=== PATIENT | male | born 1985 | race Caucasian/White ===

== ENCOUNTER 2018-05-15 21:36 | Observation (INO) ==
[2018-05-15 22:04] LABS: Microscopic, Urine URINE MICROSCOPIC (MICROSCOPIC)
[2018-05-15 22:06] LABS: Basophils # 0.1 K/mm3 (0-0.2); Basophils % 0.7 % (0.1-2.0); Eosinophils # 0.3 K/mm3 (0.0-0.4); Eosinophils % 2.6 % (0.1-12.0); Hematocrit 43.1 % (42.0-52.0); Hemoglobin 14.6 g/dL (14.1-18.0); Lymphocytes # 2.4 K/mm3 (0.7-4.5); Lymphocytes % 19.2 % (10-50); Mean Corpuscular HGB Conc 33.9 g/dL (31.8-35.4); Mean Corpuscular Hemoglobin 27.9 pg (27.0-31.2); Mean Corpuscular Volume 82.3 fl (80-94); Mean Platelet Volume 7.6 fl (7.4-10.4); Monocytes # 0.8 K/mm3 (0.1-1.0); Monocytes % 6.3 % (1.7-9.3); Neutrophils # 8.8 K/mm3 (1.8-7.8); Neutrophils % 71.3 % (37.0-80.0); Platelet Count 263 K/mm3 (142-424); Red Blood Count 5.23 M/mm3 (4.60-6.20); Red Cell Distribution Width 12.4 % (11.5-17.5); White Blood Count 12.4 K/mm3 (4.8-10.8)
[2018-05-15 22:07] LABS: Appearance,Urine CLEAR (Clear); Bilirubin,Urine Negative (Negative); Blood, Urine Negative (Negative); Color,Urine YELLOW (Yellow); Glucose,Urine (UA) Negative (Negative); Ketones,Urine Negative (Negative); Leukocyte Esterase,Urine Negative (Negative); PH,Urine 7.5 (5.0-8.5); Protein,Urine Negative (Negative); Specific Gravity, Urine 1.015 (1.005-1.030)
[2018-05-15 22:12] LABS: WBC,Urine Occasional #/hpf (0-3)
[2018-05-15 22:20] LABS: Albumin Level 4.3 gm/dL (3.4-5.0); Albumin/Globulin Ratio 1.3 (1.1-1.8); Anion Gap 13.7 mEq/L (5-15); Calcium 9.1 mg/dL (8.5-10.1); Globulin 3.4 gm/dl (1.3-3.2); Potassium 3.7 mmoL/L (3.5-5.1); Total Protein,Serum 7.7 gm/dL (6.4-8.2)
--- NOTE | 2018-05-15 22:41 | Emergency Department Note ---
ED Disposition Clinical Impression: Acute appendicitis Qualifiers: Acute appendicitis type: unspecified acute appendicitis type Qualified Code(s): K35.80 - Unspecified acute appendicitis Disposition: Admitted As Inpatient Condition on Discharge: Serious - Critical Care Critical Care Time: No Attestation: On 05/15/18, the high probability of a clinically significant, sudden or life threatening deterioration of the following system(s) required my full and direct attention, intervention and personal management. The time I documented below is in addition to time spent performing reported procedures but includes the following listed in this critical care notation. Medical Decision Making - Medical Records Medical records reviewed: Yes: I reviewed the patient's medical records. - Camacho Inquiry Pt receiving controlled substance: No Vital Signs: 05/15/18 21:49 Temperature 97.4 F L Temperature Source Oral Pulse Rate [Right Brachial] 68 Respiratory Rate 20 Blood Pressure [Right Arm] 166/96 H Blood Pressure Mean [Right Arm] 119 02 Sat by Pulse Oximetry 100 - Lab Data Lab results reviewed: Yes: I reviewed the patient's lab results. Lab Results 05/15/18 21:40: Urine Color Yellow, Urine Appearance Clear, Urine pH 7.5, Ur Specific [place] 1.015, Urine Protein Negative, Urine Glucose (UA) Negative, Urine Ketones Negative, Urine Blood Negative, Urine Nitrate Negative, Urine Bilirubin Negative, Urine Urobilinogen 1.0, Ur Leukocyte Esterase Negative, Urine WBC Occasional 05/15/18 21:50: WBC 12.4 H, RBC 5.23, Hgb 14.6, Hct 43.1, MCV 82.3, MCH 27.9, MCHC 33.9, RDW 12.4, Plt Count 263, MPV 7.6, Neut % (Auto) 71.3, Lymph % (Auto) 19.2, [place] % (Auto) 6.3, Eos % (Auto) 2.6, Baso % (Auto) 0.7, Neut # (Auto) 8.8 H, Lymph # (Auto) 2.4, [place] # (Auto) 0.8, Eos # (Auto) 0.3, Baso # (Auto) 0.1 05/15/18 21:50: Sodium 138, Potassium 3.7, Chloride 102, Carbon Dioxide 26, Anion Gap 13.7, BUN 11, Creatinine 1.10, Estimated Creat Clear 103, Estimated GFR 78, Est GFR ( Amer) 94, Glucose 100, Calcium 9.1, Total Bilirubin 1.0, AST 15, ALT 26, Alkaline Phosphatase 90, Total Protein 7.7, Albumin 4.3, Globulin 3.4 H, Albumin/Globulin Ratio 1.3, Amylase 55, Lipase 70 L Result diagrams: 05/15/18 21:50 05/15/18 21:50 Orders (Tests/Meds): ED MEDICATIONS Generic Name Dose Route Start Last Admin Trade Name Freq PRN Reason Stop Dose Admin Sodium Chloride 1,000 mls @ 999 mls/hr 05/15/18 22:00 05/15/18 22:02 Sod Chlor 0.9% 1000ml Bag IV 05/15/18 23:00 999 mls/hr .Q1H1M MELINDA Administration Ampicillin Sodium/Sulbactam 100 mls @ 200 mls/hr 05/15/18 22:45 Sodium 3 gm/ Sodium Chloride IV 05/29/18 22:44 Q6H MELINDA Protocol Sodium Chloride 10 ml 05/15/18 21:53 Saline Flush 10ml Syringe IV 06/14/18 21:52 NEEDED PRN Maintain IV Site Discontinued Medications Generic Name Dose Route Start Last Admin Trade Name Freq PRN Reason Stop Dose Admin Iopamidol 70 ml 05/15/18 22:20 05/15/18 22:21 [id number]; 75ml Vial IV 05/15/18 22:21 70 ml ONCE ONE Administration Protocol Ketorolac Tromethamine 30 mg 05/15/18 22:02 05/15/18 22:03 Toradol 30mg/Ml Vial IV 05/15/18 22:03 30 mg ONCE ONE Administration Sodium Chloride 10 ml 05/15/18 22:20 05/15/18 22:22 Rad-Saline Flush 10ml Syringe IV 05/15/18 22:21 10 ml ONCE ONE Administration ORDERS Category Date Time Status CT abdomen pelvis w con Stat Cat Scan 05/15/18 21:53 Taken Urinalysis and Microscopic Stat Lab 05/15/18 21:40 Ordered - CT Data CT Scan: Abdomen, Pelvis Time Received: 23:[address] Reviewed: Yes: I have viewed the radiologist's interpretation Preliminary Findings: Abnormal (acute appendicitis) - Physician Consults Physician Consulted: anabela Reason -: Admission Nausea/Vomiting/Diarrhea HPI - General Chief complaint: Abdominal Pain Stated complaint: Sharp pains in abdomen Time Seen by Provider: 05/15/18 22:00 Mode of Arrival: Family Vehicle Limitations: No Limitations Description of Symptoms (Recalled from ER Triage Doc. by RN): pt states he began having right lower quad abdominal pain this morning. pt states the pain radiates across abdomen to umbilical area. pt denies n/v/d - History of Present Illness HPI Narrative: rt sided abd pain since this am with moigration to rt lower abd - dec appetite - no fever or vomiting MD complaint: nausea, abdominal pain Onset (ago): hour(s) Location of pain: RLQ Severity: moderate Quality: aching Associated symptoms: loss of appetite - Related Data Allergies Allergy/AdvReac Type Severity Reaction Status Date / Time No Known Allergies Allergy Verified 05/15/18 21:52 [facility] History - Hepatitis A Screen Drug use history?: No High risk sexual behaviors?: No History of sexually transmitted infection?: No Currently employed?: No Childcare worker?: No Do you have indoor plumbing?: Yes Do you have electricity?: Yes Attestation statement:: This patient has been screened for Hepatitis A risk factors. I have reviewed the patient's past medical history: Yes Medical History: Denies:: Cancer, Diabetes Mellitus Type 1, Diabetes Mellitus Type 2, MRSA Amputation: No - Social History Smoking Status: Never smoker Alcohol Intake: current Alcohol Intake Frequency:: a few times a week Occupational Status: employed - Psychiatric History Expresses thoughts of harming self/others: None Suicide Plan Description: No Plan ROS Obtained: Yes All systems reviewed & no additional complaints - Constitutional Constitutional: Denies fever(s) - Eyes Eyes: Denies change in vision - ENT Ears, Nose, Mouth, and Throat: Denies sore throat - Cardiovascular Cardiovascular: Denies chest pain - Respiratory Respiratory: No cough - Gastrointestinal Gastrointestingal: Reports: as per HPI, abdominal pain, nausea. Denies: vomiting - Genitourinary Male Genitourinary: Denies hematuria - Musculoskeletal Musculoskeletal: Denies joint pain, Denies neck pain - Integumentary/Breasts Skin/Breast: Denies rash - Neurologic Neurologic: Denies headache(s), Denies seizure-like activity Physical Exam - General General appearance: alert, in no apparent distress - Head Head exam: normocephalic - Eye Eye exam: Present: PERRL, EOMI. Absent: scleral icterus - ENT ENT exam: Present: mucous membranes moist - Neck Neck exam: Present: trachea midline - Respiratory Respiratory exam: Absent: respiratory distress - Cardiovascular Cardiovascular exam: Present: regular rate - Abdominal Exam Abdominal exam: Present: soft, tenderness, tenderness at McBurney's Point Abdominal tenderness: Present: RLQ, moderate - Extremities Exam Extremities exam: Present: full ROM - Neurological Exam Neurological exam: Present: alert, oriented X3, CN II-XII intact - Psychiatric Psychiatric exam: Present: normal affect - Skin Skin exam: Absent: rash
[2018-05-16 05:49] LABS: Basophils # 0.1 K/mm3 (0-0.2); Basophils % 0.6 % (0.1-2.0); Eosinophils # 0.3 K/mm3 (0.0-0.4); Eosinophils % 3.5 % (0.1-12.0); Hematocrit 37.4 % (42.0-52.0); Lymphocytes # 2.3 K/mm3 (0.7-4.5); Lymphocytes % 26.1 % (10-50); Mean Corpuscular HGB Conc 34.1 g/dL (31.8-35.4); Mean Corpuscular Hemoglobin 28.3 pg (27.0-31.2); Mean Corpuscular Volume 82.9 fl (80-94); Mean Platelet Volume 7.6 fl (7.4-10.4); Monocytes # 0.7 K/mm3 (0.1-1.0); Monocytes % 7.4 % (1.7-9.3); Neutrophils # 5.4 K/mm3 (1.8-7.8); Neutrophils % 62.4 % (37.0-80.0); Platelet Count 193 K/mm3 (142-424); Red Blood Count 4.51 M/mm3 (4.60-6.20); Red Cell Distribution Width 12.5 % (11.5-17.5); White Blood Count 8.7 K/mm3 (4.8-10.8)
[2018-05-16 05:59] LABS: Hemoglobin 12.8 g/dL (14.1-18.0)
[2018-05-16 06:08] LABS: Anion Gap 12.2 mEq/L (5-15); Calcium 8.2 mg/dL (8.5-10.1); Potassium 4.2 mmoL/L (3.5-5.1)
--- NOTE | 2018-05-16 06:52 | History & Physical Report ---
HPI HPI: ABDOMINAL PAIN Patient is a pleasant healthy 32-year-old white male. Yesterday morning on 05/15/18 he began developing pain in the right lateral lower abdomen. This had persisted and progressed. He had no associated symptoms such as nausea or vomiting. No fevers. No appreciable anorexia. Due to the progression of the pain he presented to the emergency department in the late evening of 05/15/18. He was found to have a mild leukocytosis and CT scan revealed findings of acute appendicitis. He was admitted for inpatient management and planned appendectomy. [facility] History Medical History: Denies:: Cancer, Diabetes Mellitus Type 1, Diabetes Mellitus Type 2, MRSA Have you ever received a pneumonia vaccine?: No Have you received a flu vaccine this season?: Yes Amputation: No - *Social History Educational Level: Attended College Smoking Status: Former smoker Tobacco Type: smokeless tobacco Alcohol Intake: current Alcohol Intake Frequency:: a few times a month Occupational Status: employed Housing: house Household Members: family Travel in the last 8 weeks: None - Psychiatric History Expresses thoughts of harming self/others: None Suicide Plan Description: No Plan *Family Hx:: Cancer, Diabetes, Hypertension, Stroke Review of Systems - Review of Systems Review of systems:: pertinent systems reviewed and negative unless documented below - Constitutional Denies chills, Denies fever(s) - Eyes Denies change in vision - ENT Denies abnormal hearing - *Cardiovascular Denies chest pain - *Respiratory Denies shortness of breath - *Gastrointestinal Reports abdominal pain - *Genitourinary Denies difficulty urinating - *Musculoskeletal Denies abnormal walking - *Neurologic Denies headache(s), Denies seizure-like activity Meds Allergies Allergy/AdvReac Type Severity Reaction Status Date / Time No Known Allergies Allergy Verified 05/15/18 21:52 Exam Vital signs and Labs for Last 24 Hours: Temp Pulse Resp BP Pulse Ox 97.6 F 72 17 121/72 100 05/16/18 04:00 05/16/18 04:00 05/16/18 04:00 05/16/18 04:00 05/16/18 04:00 Laboratory Results - last 24 hr 05/15/18 21:40: Urine Color Yellow, Urine Appearance Clear, Urine pH 7.5, Ur Specific [place] 1.015, Urine Protein Negative, Urine Glucose (UA) Negative, Urine Ketones Negative, Urine Blood Negative, Urine Nitrate Negative, Urine Bilirubin Negative, Urine Urobilinogen 1.0, Ur Leukocyte Esterase Negative, Urine WBC Occasional 05/15/18 21:50: WBC 12.4 H, RBC 5.23, Hgb 14.6, Hct 43.1, MCV 82.3, MCH 27.9, MCHC 33.9, RDW 12.4, Plt Count 263, MPV 7.6, Neut % (Auto) 71.3, Lymph % (Auto) 19.2, Dare % (Auto) 6.3, Eos % (Auto) 2.6, Baso % (Auto) 0.7, Neut # (Auto) 8.8 H, Lymph # (Auto) 2.4, Dare # (Auto) 0.8, Eos # (Auto) 0.3, Baso # (Auto) 0.1 05/15/18 21:50: Sodium 138, Potassium 3.7, Chloride 102, Carbon Dioxide 26, Anion Gap 13.7, BUN 11, Creatinine 1.10, Estimated Creat Clear 103, Estimated GFR 78, Est GFR ( Amer) 94, Glucose 100, Calcium 9.1, Total Bilirubin 1.0, AST 15, ALT 26, Alkaline Phosphatase 90, Total Protein 7.7, Albumin 4.3, Globulin 3.4 H, Albumin/Globulin Ratio 1.3, Amylase 55, Lipase 70 L 05/16/18 05:25: WBC 8.7 D, RBC 4.51 L, Hgb 12.8 L D, Hct 37.4 L, MCV 82.9, MCH 28.3, MCHC 34.1, RDW 12.5, Plt Count 193 D, MPV 7.6, Neut % (Auto) 62.4, Lymph % (Auto) 26.1, Dare % (Auto) 7.4, Eos % (Auto) 3.5, Baso % (Auto) 0.6, Neut # (Auto) 5.4, Lymph # (Auto) 2.3, Dare # (Auto) 0.7, Eos # (Auto) 0.3, Baso # (Auto) 0.1 05/16/18 05:25: Sodium 141, Potassium 4.2, Chloride 106, Carbon Dioxide 27, Anion Gap 12.2, BUN 10, Creatinine 0.98, Estimated Creat Clear 117, Estimated GFR 89, Est GFR ( Amer) 108, Glucose 93, Calcium 8.2 L I & O for Last 24 hours: Intake & Output 05/13/18 05/14/18 05/15/18 05/16/18 11:59 11:59 11:59 11:59 Intake Total 484 / 484 Balance 484 / 484 Weight 167 lb 7 oz - *Routine HEENT Exam Head: Present: normocephalic Eye: Present: EOMI, PERRL ENT: Present: mucous membranes moist - *Routine Neck Exam Present: supple. Absent: lymphadenopathy - *Routine Respiratory Exam Present: CTA bilaterally - *Routine Cardiovascular Exam Present: RRR - *Routine Abdominal Exam Present: soft, normoactive bowel sounds, tenderness Comments: Tender in the right lower quadrant. - *Routine Extremities Exam Absent: cyanosis, clubbing, edema - *Routine Skin Exam Present: warm. Absent: rash - *Routine Neurological Exam Present: alert, oriented X3 - Detailed Eye Exam Eyelids: Left normal inspection Results - Results Lab Results Last 24 Hours:: Laboratory Results - last 24 hr 05/15/18 21:40: Urine Color Yellow, Urine Appearance Clear, Urine pH 7.5, Ur Specific [place] 1.015, Urine Protein Negative, Urine Glucose (UA) Negative, Urine Ketones Negative, Urine Blood Negative, Urine Nitrate Negative, Urine Blane irubin Negative, Urine Urobilinogen 1.0, Ur Leukocyte Esterase Negative, Urine WBC Occasional 05/15/18 21:50: WBC 12.4 H, RBC 5.23, Hgb 14.6, Hct 43.1, MCV 82.3, MCH 27.9, MCHC 33.9, RDW 12.4, Plt Count 263, MPV 7.6, Neut % (Auto) 71.3, Lymph % (Auto) 19.2, [place] % (Auto) 6.3, Eos % (Auto) 2.6, Baso % (Auto) 0.7, Neut # (Auto) 8.8 H, Lymph # (Auto) 2.4, Dare # (Auto) 0.8, Eos # (Auto) 0.3, Baso # (Auto) 0.1 05/15/18 21:50: Sodium 138, Potassium 3.7, Chloride 102, Carbon Dioxide 26, Anion Gap 13.7, BUN 11, Creatinine 1.10, Estimated Creat Clear 103, Estimated GFR 78, Est GFR ( Amer) 94, Glucose 100, Calcium 9.1, Total Bilirubin 1.0, AST 15, ALT 26, Alkaline Phosphatase 90, Total Protein 7.7, Albumin 4.3, Globulin 3.4 H, Albumin/Globulin Ratio 1.3, Amylase 55, Lipase 70 L 05/16/18 05:25: WBC 8.7 D, RBC 4.51 L, Hgb 12.8 L D, Hct 37.4 L, MCV 82.9, MCH 28.3, MCHC 34.1, RDW 12.5, Plt Count 193 D, MPV 7.6, Neut % (Auto) 62.4, Lymph % (Auto) 26.1, Dare % (Auto) 7.4, Eos % (Auto) 3.5, Baso % (Auto) 0.6, Neut # (Auto) 5.4, Lymph # (Auto) 2.3, Dare # (Auto) 0.7, Eos # (Auto) 0.3, Baso # (Auto) 0.1 05/16/18 05:25: Sodium 141, Potassium 4.2, Chloride 106, Carbon Dioxide 27, Anion Gap 12.2, BUN 10, Creatinine 0.98, Estimated Creat Clear 117, Estimated GFR 89, Est GFR ( Amer) 108, Glucose 93, Calcium 8.2 L Assessment and Plan - Assessment and plan all Dx Assessment and Plan for all problems:: Plan for appendectomy this morning.
--- NOTE | 2018-05-16 08:36 | Operative Note ---
Date of procedure: 05/16/18 Pre-op Diagnosis:: Acute appendicitis Post-op Diagnosis:: SAme Procedure performed:: Laparoscopic appendectomy Surgeon:: Mayo Muller MD BLOOD BANK ATTENDANT:: Naga Tuttle Anesthesia: GETCristy Estimated blood loss (mL): 20 Clinical Note:: Patient is a 32-year-old healthy white male who began experiencing right lower quadrant abdominal pain in the morning of 05/15/18. This had persisted. He had actually worked that morning. Due to the ongoing pain with some progression he presented to the emergency department in the evening of 05/15/18. He was seen and evaluated and had a mild leukocytosis. CT scan revealed findings of acute appendicitis. He was admitted for inpatient management and planned appendectomy. Operative findings:: Patient had an acutely inflamed somewhat suppurative but nonperforated appendicitis. Operative note:: Consent was obtained and patient was taken to the operating room. He was given preoperative intravenous antibiotics. In the operating room he was placed in supine position. General anesthesia was induced via endotracheal tube. Pickett catheter was placed. Abdomen was prepped and draped in the standard surgical fashion. Subumbilical skin incision was made and while performing abdominal wall lift Veress needle was inserted. CO2 pneumoperitoneum was achieved to 15 mmHg. A 12 mm optical trocar was inserted at the umbilicus. Intraperitoneal contents were visualized. He was positioned in Trendelenburg left side down. 5 mm trocar was inserted in the suprapubic location. 5 mm trocar was inserted in the right upper abdomen. 0 degree laparoscope was replaced with a 5 mm 30 degree laparoscope was inserted through the right upper abdominal trocar site. Appendix was identified. There was some fibrinopurulent exudate. There were acute inflammatory adhesions the apex to the terminal ileum. With minimal difficulty the appendix was dissected free from the terminal ileum. There was some reactive fluid which was nonpurulent around the appendix and this was suctioned free. Careful dissection was carried out of the mesoappendix dividing the mesoappendix with BROCK ultrasonic harmonic timoteo with care taken to coagulate the appendiceal artery in the process. Limited use of blunt dissection was performed down to the appendiceal base at the cecum which is relatively noninflamed. The appendix was divided at its base with an endoscopic GILSON linear cutting stapling device. The appendix was placed within an Endo Catch retrieval device and removed from the peritoneal cavity via the umbilical trocar site. The appendiceal staple line was inspected for hemostasis and integrity which was assured. Limited irrigation was performed of the pericecal location. Trochars were removed as CO2 pneumoperitoneum was evacuated. Fascia at the umbilicus was closed with 0 Vicryl [id number] suture. Local anesthetic was infiltrated in all incisions. Skin incisions were closed with 4- 0 Monocryl in a subcuticular fashion. Steri-Strips and dressings were applied. Condition: stable Disposition: PACU Specimens:: Appendix Complications:: None immediately apparent
--- NOTE | 2018-05-16 08:40 | Progress Note ---
[facility] Anesthesia Checklist - Patient Identification Patient Identification: Arm Band - Structural Data Admitted From: Inpatient Planned Operative Procedure/s: laparocopic appendectomy Consent for Planned Operative Procedure(s) Verified: Yes Verified Documents: Surgical Consent, History and Physical - NPO Status Verified Time NPO: 00:00 - Additional verifications Anesthesia Reactions: No - Airway Assessment C-Spine Mobility Assessed: Yes (mp2) TMJ Mobility Assessed: Yes Dentition: Good Dentition - Neurological Assessment Level of Consciousness: Awake, Alert - Anesthesia Plan Anesthesia Risk discussed: Yes Anesthesia Plan: Verified ASA Class: I (e) [facility] History I have reviewed the patient's past medical history: Yes Medical History: Denies:: Cancer, Diabetes Mellitus Type 1, Diabetes Mellitus Type 2, MRSA Have you ever received a pneumonia vaccine?: No Have you received a flu vaccine this season?: Yes Other Surgeries: Yes: No Previous Surgery Amputation: No - *Social History Educational Level: Attended College Smoking Status: Former smoker Tobacco Type: smokeless tobacco Alcohol Intake: current Alcohol Intake Frequency:: a few times a month Occupational Status: employed Housing: house Household Members: family Travel in the last 8 weeks: None - Psychiatric History Expresses thoughts of harming self/others: None Suicide Plan Description: No Plan *Family Hx:: Cancer, Diabetes, Hypertension, Stroke
--- NOTE | 2018-05-16 08:41 | Progress Note ---
[facility] Anesthesia Record Part II Discharge Time: 09:05 Destination: 2nd floor PACU nurse assessment reviewed?: Yes Patient Condition:: Good Anesthesia Complications:: None Swallowing reflex intact?: Yes Cyanosis?: No
--- NOTE | 2018-05-16 08:41 | Progress Note ---
[facility] Anesthesia Record Part I Intake, IV Amount: 1,400 Estimated blood loss (mL): 10 Urine output (mL): 50 Blood Pressure: 158/85 SaO2: 97 Pulse Rate: 54 Respiratory Rate: 16 Temperature: 98.5 F Patient is:: Drowsy, Stable Stable to PACU at:: 08:35
--- NOTE | 2018-05-16 10:59 | Pharmacy Consult Notes ---
[facility] Pharmacy VTE Monitoring - Patient Demographics Admission date: 05/15/18 Report Date: 05/16/18 Time: 10:59 Allergies/Adverse Reactions: Patient Allergies No Known Allergies Allergy (Verified 05/15/18 21:52) Height: 1.68 m Weight: 75.948 kg Patient Problems: Current Active Problems Acute appendicitis (Acute) - VTE Risk Labs: VTE Related Lab Results Hgb 12.8 g/dL (14.1-18.0) L D 05/16/18 05:25 Hct 37.4 % (42.0-52.0) L 05/16/18 05:25 Plt Count 193 K/mm3 (142-424) D 05/16/18 05:25 BUN 10 mg/dL (7-18) 05/16/18 05:25 Creatinine 0.98 mg/dL (0.70-1.30) 05/16/18 05:25 Estimated Creat Clear 117 mL/min (50-200) 05/16/18 05:25 Was VTE Risk Assessment Performed: Yes VTE Score: 0 VTE Risk Level: Very Low Risk - Prophylaxis VTE Prophylaxis Ordered?: Yes Types of VTE Prophylaxis: TEDS Knee High Location of Applied Device: Bilateral Lower Extremeties - VTE Diagnosis Confirmed Treatment or plan recommended: Continue Current Treatment
[2018-05-17 06:13] LABS: Basophils % 0.4 % (0.1-2.0); Eosinophils # 0.1 K/mm3 (0.0-0.4); Eosinophils % 0.8 % (0.1-12.0); Hematocrit 38.9 % (42.0-52.0); Hemoglobin 12.8 g/dL (14.1-18.0); Lymphocytes # 2.4 K/mm3 (0.7-4.5); Lymphocytes % 24.5 % (10-50); Mean Corpuscular HGB Conc 32.9 g/dL (31.8-35.4); Mean Corpuscular Hemoglobin 27.4 pg (27.0-31.2); Mean Corpuscular Volume 83.3 fl (80-94); Mean Platelet Volume 7.8 fl (7.4-10.4); Monocytes # 0.6 K/mm3 (0.1-1.0); Monocytes % 6.4 % (1.7-9.3); Neutrophils # 6.7 K/mm3 (1.8-7.8); Neutrophils % 67.9 % (37.0-80.0); Platelet Count 244 K/mm3 (142-424); Red Blood Count 4.67 M/mm3 (4.60-6.20); Red Cell Distribution Width 12.3 % (11.5-17.5); White Blood Count 9.8 K/mm3 (4.8-10.8)
--- NOTE | 2018-05-17 06:52 | Progress Note ---
Subjective Patient reports: no new complaints Narrative: Tolerating full liquids. Feels better. Exam Vital signs and Labs for Last 24 Hours: Temp Pulse Resp BP Pulse Ox 97.9 F 64 16 131/64 98 05/17/18 04:00 05/17/18 04:00 05/17/18 04:00 05/17/18 04:00 05/17/18 04:00 Laboratory Results - last 24 hr 05/16/18 07:29: Urine Color Yellow, Urine Appearance Clear, Urine pH 6.5, Ur Specific [place] 1.015, Urine Protein Negative, Urine Glucose (UA) Negative, Urine Ketones Trace, Urine Blood 1+, Urine Nitrate Negative, Urine Bilirubin Negative, Urine Urobilinogen 0.2, Ur Leukocyte Esterase Negative, Urine RBC 3-5, Urine WBC Occasional, Ur Squamous Epith Cells Occasional, Urine Bacteria Trace 05/17/18 05:20: WBC 9.8, RBC 4.67, Hgb 12.8 L, Hct 38.9 L, MCV 83.3, MCH 27.4, MCHC 32.9, RDW 12.3, Plt Count 244 D, MPV 7.8, Neut % (Auto) 67.9, Lymph % (Auto) 24.5, [place] % (Auto) 6.4, Eos % (Auto) 0.8, Baso % (Auto) 0.4, Neut # (Aut o) 6.7, Lymph # (Auto) 2.4, [place] # (Auto) 0.6, Eos # (Auto) 0.1, Baso # (Auto) 0.0 I & O for Last 24 hours: Intake & Output 05/14/18 05/15/18 05/16/18 05/17/18 11:59 11:59 11:59 11:59 Intake Total 1884 / 1884 4008 / 4008 Output Total 50 / 50 Balance 1834 / 1834 4008 / 4008 Weight 167 lb 7 oz 170 lb 2 oz - *Routine Abdominal Exam Present: soft Progress Note: A&P Assessment and Plan for All Diagnoses:: DC home.
--- NOTE | 2018-05-17 06:56 | Discharge Summary ---
General - General Admission date:: 05/15/18 Discharge date: 05/17/18 HPI HPI: Patient is a pleasant healthy 32-year-old white male. On 05/15/18 he began developing pain in the right lateral lower abdomen. This had persisted and progressed. He had no associated symptoms such as nausea or vomiting. No fevers. No appreciable anorexia. Due to the progression of the pain he presented to the emergency department in the late evening of 05/15/18. He was found to have a mild leukocytosis and CT scan revealed findings of acute appendicitis. He was admitted for inpatient management and planned appendectomy. Hospital Course Hospital Course: Patient was admitted to the medical surgical floor. He was started on intravenous Unasyn. Several hours after admission he was taken to the operating room at which time he underwent laparoscopic appendectomy. He was found to have an acute somewhat suppurative appendicitis with fibrinopurulent exudate without perforation or necrosis. Please see operative dictation for details. Postoperatively he was given a full liquid diet. He was continued on perioperative antibiotics consisting of intravenous Unasyn. He did well overnight. Tolerated diet without difficulty. The following morning his white blood cell count had normalized. Plan was made for discharge home. Objective Vital signs: Temp Pulse Resp BP Pulse Ox 97.9 F 64 16 131/64 98 05/17/18 04:00 05/17/18 04:00 05/17/18 04:00 05/17/18 04:00 05/17/18 04:00 - Detailed Eye Exam Eyelids: Left normal inspection Results Labs on day of discharge: Labs from last 24 hours 05/17/18 05/16/18 05:20 07:29 WBC 9.8 RBC 4.67 Hgb 12.8 L Hct 38.9 L MCV 83.3 MCH 27.4 MCHC 32.9 RDW 12.3 Plt Count 244 D MPV 7.8 Neut % (Auto) 67.9 Lymph % (Auto) 24.5 [place] % (Auto) 6.4 Eos % (Auto) 0.8 Baso % (Auto) 0.4 Neut # (Auto) 6.7 Lymph # (Auto) 2.4 [place] # (Auto) 0.6 Eos # (Auto) 0.1 Baso # (Auto) 0.0 Urine Color Yellow Urine Appearance Clear Urine pH 6.5 Ur Specific [place] 1.015 Urine Protein Negative Urine Glucose (UA) Negative Urine Ketones Trace Urine Blood 1+ Urine Nitrate Negative Urine Bilirubin Negative Urine Urobilinogen 0.2 Ur Leukocyte Esterase Negative Urine RBC 3-5 Urine WBC Occasional Ur Squamous Epith Cells Occasional Urine Bacteria Trace Discharge Plan - Patient Discharge Instructions ACTIVITY: No heavy lifting DIET: advance to your usual diet Additional Instructions: No work for 7 days. Then limit to light duty (no lifting greater than 10 pounds) Patient Instructions: DI for Surgical Site Infection, Appendectomy -- Laparoscopic Surgery - Follow up Plan Follow up with: Mayo Muller MD [Staff Physician] - 2 weeks Disposition: Home, Self-Halfway Medications: Home Medications Medication Instructions Recorded Confirmed Type Hydrocod/Acet 5/325 mg [Clay 1 - 2 tab PO Q6HP PRN #21 tab 05/16/18 Rx 5/325mg tablet] Prescriptions/Medication Reconciliation: New Hydrocod/Acet 5/325 mg [Clay 5/325mg tablet] 1 - 2 tab PO Q6HP PRN #21 tab PRN Reason: Moderate Pain
== END 2018-05-17 09:14 | disposition home or self-care (01) ==
LOC: ER 21:36 → 2ND 22:46 → INTOOBSV 23:00 → 2ND 23:16
PROVIDERS: ADMIT Surgery; ATTEND Surgery
DX: K35.80 Unspecified acute appendicitis
CPT/HCPCS: 36415; 74177; 80048; 80053; 81001; 82150; 83690; 85025; 96365; 96375; 99283; G0378; J2405; J2710; Q9967

== ENCOUNTER 2023-12-21 08:03 | Emergency (ER) | payer BC, SELFPAY ==
--- NOTE | 2023-12-21 08:27 | EXP.UTC ---
Discharge Plan Disposition Patient Disposition: Home, Self-Care Condition: Good Prescriptions Prescriptions: New valacyclovir 1 gram tablet 1,000 mg PO Q8H 7 Days Qty: 21 0RF Referrals Follow up/Referrals: Anna Madsen MD [Primary Care Provider] - See instructions Activity Restrictions/Add. Instructions Additional Instructions/Restrictions: Take medication as prescribed DO not scratch the blisters they will bust and scab over Follow up with your Family Doctor if no improvement or any worsening of symptoms Straight to ER if any life threatening symptoms Keep your skin clean and avoid scratching or picking at blisters.?You can cover blisters with a thin layer of petroleum jelly and a non-stick bandage to keep them moist until they heal.?Throw away bandages that have touched your skin sores and wash clothing and sheets in hot water. Avoid close contact with people who haven't had chickenpox, especially women, until the blisters have healed.?You can also practice good hygiene by washing your hands with soap and water or using hand sql architect, covering coughs and sneezes, and using a tissue that you throw away immediately Clinical Impressions Clinical Impression: Shingles Qualifiers: Herpes zoster complications: without complications Qualified Code(s): B02.9 - Zoster without complications Stand Alone Forms Stand Alone Forms: Work/School Release Instructions Patient Instructions: DI for Shingles, Shingles Print Language Print Language: Qatari Discharge ED Provider: Dorothy rBagg [facility] [place] General Stated complaint: rash on chest Time Seen by Provider: 12/21/23 08:28 History of Present Illness Provider Complaint: Patient states that he noticed he broke out in rash on his right side of chest from center of chest to his shoulder area and now spreading onto the right side of his upper back States that it does itch a little and feels like pins and needles States today it was getting worse so he came in to get checked Related Data Previous Rx's ?Medication ?Instructions ?Recorded valacyclovir 1 gram tablet 1,000 mg PO Q8H 7 days #21 tabs 12/21/23 Allergies Allergy/AdvReac Type Severity Reaction Status Date / Time No Known Allergies Allergy Verified 05/31/18 09:19 [facility] Disclaimer: The information contained in this section may have been updated after the patient was seen, as this information can be updated by other users. Social History Smoking Status: Former smoker tobacco type: smokeless tobacco alcohol intake: current alcohol intake frequency: a few times a month substance use type: denies use current occupational status: employed Travel in the last 8 weeks: None household members: family housing: house ROS Obtained: Yes All systems reviewed & no additional complaints except as documented and Yes Systems reviewed as appropriate & no additional complaints except as documented Constitutional Constitutional: Reports system reviewed and no additional complaints, except as documented and Reports as per HPI ENT Ears, Nose, Mouth, and Throat: Reports system reviewed and no additional complaints, except as documented and Reports as per HPI Cardiovascular Cardiovascular: Reports system reviewed and no additional complaints, except as documented and Reports as per HPI Respiratory Respiratory: Reports system reviewed and no additional complaints, except as documented and Reports as per HPI Gastrointestinal Gastrointestingal: Reports system reviewed and no additional complaints, except as documented and as per HPI Integumentary/Breasts Skin/Breast: Reports system reviewed and no additional complaints, except as documented, Reports as per HPI, Reports pruritus (feeling like pins and needles) and Reports rash Physical Exam General General appearance: alert and in no apparent distress ENT ENT exam: Present mucous membranes moist Chest Chest inspection: Present normal inspectio
[2023-12-21 08:28] VITALS: BP 159/95; PULSE 75; RESP 16; TEMP 36.7; O2SAT 99; BMI 28.2
[2023-12-21 08:43] VITALS: BP 159/95; PULSE 75; RESP 16; TEMP 36.7; O2SAT 99
== END 2023-12-21 08:43 | disposition home or self-care (01) ==
PROVIDERS: Emergency Provider Nurse Practitioner; PCP Family Medicine
DX: B02.9 Zoster without complications (principal)
CPT/HCPCS: 99204; 99212; G0463